=== PATIENT | female | born 1950 | race Caucasian/White ===

== ENCOUNTER 2023-07-24 10:31 | Outpatient (CLI) | payer MEDICARE | END 2023-07-24 10:32 | disposition home or self-care (01) | LOC: BICMAMMO 10:31 | PROVIDERS: ATTEND Family Medicine | DX: Z12.31 Encounter for screening mammogram for malignant neoplasm of breast (principal); M85.80 Other specified disorders of bone density and structure, unspecified site; M81.0 Age-related osteoporosis without current pathological fracture; Z91.89 Other specified personal risk factors, not elsewhere classified | CPT/HCPCS: 77063; 77067; 77080 ==

== ENCOUNTER 2024-04-06 11:09 | Outpatient (CLI) | payer MEDICARE | END 2024-04-06 11:10 | disposition home or self-care (01) | LOC: BICRAD 11:09 | PROVIDERS: ATTEND Family Medicine | DX: M47.22 Other spondylosis with radiculopathy, cervical region (principal); M25.561 Pain in right knee; D86.9 Sarcoidosis, unspecified | CPT/HCPCS: 71046; 72050 ==

== ENCOUNTER 2024-06-07 09:47 | Outpatient (CLI) | payer MEDICARE ==
[2024-06-07] MEDS ORDERED: Iopamidol 370 76% 100 ML VIAL ONE (15:14)
== END 2024-06-07 09:48 | disposition home or self-care (01) ==
LOC: BICCT 09:47
PROVIDERS: ATTEND Physician Assistant Medical
DX: K58.0 Irritable bowel syndrome with diarrhea (principal); K58.1 Irritable bowel syndrome with constipation; R10.84 Generalized abdominal pain; K63.89 Other specified diseases of intestine
CPT/HCPCS: 74177; 82565; Q9967

== ENCOUNTER 2024-09-27 10:11 | Outpatient (CLI) | payer MEDICARE | END 2024-09-27 10:12 | disposition home or self-care (01) | LOC: BICMAMMO 10:11 | PROVIDERS: ATTEND Family Medicine | DX: Z12.31 Encounter for screening mammogram for malignant neoplasm of breast (principal) | CPT/HCPCS: 77063; 77067 ==

== ENCOUNTER 2024-12-02 09:47 | Outpatient (CLI) | payer OTHER ==
[2024-12-02] MEDS ORDERED: Iopamidol 370 76% 100 ML VIAL ONE (15:30)
== END 2024-12-02 09:48 | disposition home or self-care (01) ==
LOC: BICCT 09:47
PROVIDERS: ATTEND Family Medicine
DX: N39.42 Incontinence without sensory awareness (principal); R41.3 Other amnesia; K74.60 Unspecified cirrhosis of liver
CPT/HCPCS: 36415; 70450; 74177; 82565; Q9967

== ENCOUNTER 2024-12-27 09:46 | Outpatient (CLI) | payer OTHER ==
[2024-12-27] MEDS ORDERED: Magnevist 469MG/ML 20 ML VIAL ONE (11:54)
== END 2024-12-27 09:47 | disposition home or self-care (01) ==
LOC: BICMRI 09:46
PROVIDERS: ATTEND Psychiatry & Neurology Neurology
DX: R41.3 Other amnesia (principal); R90.82 White matter disease, unspecified
CPT/HCPCS: 70553

== ENCOUNTER 2025-08-02 08:52 | Outpatient (CLI) | payer OTHER ==
[2025-08-02] MEDS ORDERED: Iopamidol-370 76% 500 ML MDV (1 ML CHARGE) ONE (10:22)
== END 2025-08-02 08:53 | disposition home or self-care (01) ==
LOC: CT 08:52
PROVIDERS: ATTEND Urology
DX: R31.0 Gross hematuria (principal); J98.4 Other disorders of lung; I70.90 Unspecified atherosclerosis; K75.3 Granulomatous hepatitis, not elsewhere classified; K57.30 Diverticulosis of large intestine without perforation or abscess without bleeding; K63.89 Other specified diseases of intestine; M47.9 Spondylosis, unspecified; M85.88 Other specified disorders of bone density and structure, other site; S32.041D Stable burst fracture of fourth lumbar vertebra, subsequent encounter for fracture with routine healing; Z90.49 Acquired absence of other specified parts of digestive tract; Z90.710 Acquired absence of both cervix and uterus; Z98.890 Other specified postprocedural states
CPT/HCPCS: 74178; Q9967

== ENCOUNTER 2025-08-24 08:00 | Outpatient (CLI) | payer OTHER | END 2025-08-24 12:39 | disposition home or self-care (01) | LOC: RAD 08:00 | PROVIDERS: ATTEND Internal Medicine | DX: D86.0 Sarcoidosis of lung (principal) | CPT/HCPCS: 71046 ==

== ENCOUNTER 2025-09-08 08:08 | Outpatient (CLI) | payer OTHER | END 2025-09-08 08:09 | disposition home or self-care (01) | LOC: ULT 08:08 | PROVIDERS: ATTEND Physician Assistant Medical | DX: K76.0 Fatty (change of) liver, not elsewhere classified (principal); K64.9 Unspecified hemorrhoids; K59.00 Constipation, unspecified; Z90.49 Acquired absence of other specified parts of digestive tract | CPT/HCPCS: 76705 ==

== ENCOUNTER 2025-09-28 11:29 | Outpatient (CLI) | payer OTHER | END 2025-09-28 11:30 | disposition home or self-care (01) | LOC: BICMAMMO 11:29 | PROVIDERS: ATTEND Family Medicine | DX: Z12.31 Encounter for screening mammogram for malignant neoplasm of breast (principal); Z80.3 Family history of malignant neoplasm of breast; Z91.89 Other specified personal risk factors, not elsewhere classified | CPT/HCPCS: 77063; 77067 ==